=== PATIENT | female | born 1975 | race Caucasian/White ===

== ENCOUNTER 2021-08-22 06:13 | Day surgery (SDC) | payer OTHER ==
[~2021-08-22] VITALS: Ht 172.7 cm; Wt 74.0 kg
[~2021-08-22 06:13] MED LIST: ACETAMINOPHEN 500 MG TABLET PO PRN; CALC625T12 PO; CHOL5000 PO; HYDROmorphone 2 MG/ML INJ. IVP PRN; IV RINGERS,LACTATED 1000ML 1,000 ML IV SCH; MORPHINE SULFATE 2 MG/ML INJ. IVP PRN; MULT-245 PO; OMEP20CA16 PO; PROCHLORPERAZINE 10 MG/2 ML VIAL. IVP PRN; TIZA-75 PO; TRAM50TA PO; ceFAZolin SODIUM IV Push 1 GM VIAL. IVP PRN; fentaNYL PF VIAL 100 MCG/2 ML VIAL IVP PRN
[2021-08-22 06:38] VITALS: BP 135/76
[2021-08-22] MEDS ORDERED: PROPOFOL 10 MG/ML (20ML) VIAL. IV ONE (06:48)
[2021-08-22] MEDS ORDERED: ONDANSETRON PF 4 MG/2 ML VIAL. ONE (06:48)
[2021-08-22] MEDS ORDERED: LIDOCAINE 2% PF 5 ML VIAL. ONE (06:48)
[2021-08-22] MEDS ORDERED: DEXAMETHASONE SOD PHOS 4 MG/ML VIAL ONE (06:48)
[2021-08-22] MEDS ORDERED: BUPIVACAINE-EPI 0.25%-1:200000 MPF 30 ML VIAL. ONE (07:09)
[2021-08-22] MEDS ORDERED: SCOPOLAMINE 1.5MG PATCH. TD ONE (07:15)
[2021-08-22] MEDS ORDERED: MIDAZOLAM HCL/PF 2 MG/2 ML VIAL. ONE (07:26)
[2021-08-22] MEDS ORDERED: fentaNYL PF VIAL 100 MCG/2 ML VIAL ONE ×2 (07:26→08:23)
[2021-08-22] MEDS ORDERED: KETOROLAC 30 MG/ML VIAL. ONE (07:42)
[2021-08-22] MEDS ORDERED: SEVOFLURANE 31 TO 60 MINUTES. IH ONE (07:43)
--- NOTE | 2021-08-22 07:59 | PDOC4 ---
Operative Note Operative Note Date: August 222021 at 7:57 AM Preoperative diagnosis: Right supraclavicular mass Postoperative diagnosis: Same Procedure: Excision of right supraclavicular mass Surgeon: Finn Specimen: Right supraclavicular mass Pie Chef: None Dictation: Patient is a 46-year-old female has noted a mass at the base of her neck on the right side she is also has some lymph nodes palpable on the left side CT scan showed multiple lymphadenopathies of the neck and cervical chain. Procedure of excisional biopsy was explained to the patient detail risk-benefit were also discussed including bleeding infection alternatives this procedure also discussed with the patient who seemed to understand and gave a verbal written consent to have procedure performed. Patient was taken to the operating room placed in supine position general anesthesia was initiated once patient was sleeping intubated her neck was prepped and draped in usual sterile fashion using ChloraPrep. An area over the mass on the right supraclavicular area was injected with quarter percent Marcaine with epinephrine incision was made 15 blade scalpel is carried down through subcutaneous tissues using electrocautery right hemostasis down to the mass which appeared to be a large lymph node this was excised with electrocautery and sent for pathology as fresh specimen. The wound was then closed in the deep layer 3-0 Vicryl and the skin was reapproximated for subcuticular Monocryl Mastisol Steri-Strips and island dressings were applied. Patient was awakened and extubated in the operating room taken recovery in stable condition all sponge instrument needle counts listed as correct estimated blood loss 5 mL KODAK DUVAL MD Aug 22, 2021 07:59
[2021-08-22] MEDS ORDERED: TRAM50TA PO (08:01)
--- NOTE | 2021-08-22 08:03 | DISCH ---
DISCHARGE INSTRUCTIONS Condition on Discharge Condition on Discharge: Stable Activity After Discharge Activity Instructions for Disc: Activity as tolerated Diet after Discharge Diet after Discharge: Regular Wound Incision Care Other wound/incision instructi: May shower in 24-hour Contacting the DRBrigette after DC Call your doctor for: If your condition worsens Follow-Up Follow up with: Dr. Duval in 2-week KODAK DUVAL MD Aug 22, 2021 08:02
[2021-08-22] MEDS: fentaNYL PF VIAL 100 MCG/2 ML VIAL IVP PRN ×2 (08:28→08:49)
[2021-08-22] MEDS ORDERED: traMADol 50 MG TABLET PO ONE (08:45)
[2021-08-22] MEDS ORDERED: MORPHINE SULFATE 2 MG/ML INJ. ONE (08:50)
[2021-08-22 08:56] VITALS: BP 159/95
--- NOTE | 2021-08-29 17:07 | PATHOLOGY ---
[facility] Accession Number: [id number] . 01 Material submitted: . lymph node - RIGHT SUPRACLAVICULAR LYMPH NODE SENT FRESH TOUCH PREP. Modifiers: right, SUPRACLAVICULAR . 01 Clinical history: . ENLARGED LYMPH NODE R SUPRACLAVICULAR LYMPH NODE EXCISION LYMPHADENOPATHY . 02 Frozen section diagnosis: . TOUCH PREPARATION GROSS DESCRIPTION: The specimen is received in two parts. The first consists of an enlarged merchant lymph node which measures up to 3.5 x 3.0 x 2.0 cm in greatest dimension. Sectioning reveals a merchant fleshy appearing cut surface. Two touch preparations are prepared and submitted for H and E staining. A agency sales representative portion of the node is submitted in RPMI for lymphocyte marker studies by flow cytometry. Field Crop Farm Worker sections from this node are submitted as A1-A5. . Also received is a lobulated segment of reddish-purple and merchant soft tissue measuring up to 3.0 x 2.5 x 1.0 cm in greatest dimension. Sectioning reveals what appears to be several merchant lymph nodes ranging from 0.8 cm up to 1.5 cm. Field Crop Farm Worker sections from these lymph nodes are submitted for microscopy as A6 and A7. . (JPM:pit:db; 08/22/2021) . Touch preparation performed at [facility], [address] [facility] [place] [address] JMP/QTP . 02 Diagnosis: Lymph nodes, right supraclavicular lymph node excisional biopsy: - CLASSIC HODGKIN LYMPHOMA, NODULAR SCLEROSIS SUBTYPE, WITH FOCAL AREAS OF SYNCYTIAL VARIANT. SEE COMMENT. . LBQ 08/29/2021 1608 Local . 02 Comment: Sections of the right supraclavicular lymph node excisional biopsy reveal an atypical lymphoid proliferation extensively involving several lymph nodes. The lymph nodes show multiple and frequently solid clusters of atypical large lymphoid cells, some of which show central necrosis. The atypical large lymphoid cells have pale eosinophilic cytoplasm, and possess enlarged rounded, ovoid, and irregular nuclei containing prominent nucleoli. There are mitotic figures present. The clusters contain variable, and focally prominent numbers of admixed eosinophils. There is also an occasional admixed multinucleated giant cell. There are focal larger irregular areas of confluent clusters of atypical cells which have a fibrohistiocytic appearance. The larger lymph node is focally partially divided into smaller nodules revealing a similar atypical lymphoid proliferation. Between the clusters there are uninvolved areas of lymph node focally containing lymphoid follicles with germinal centers and patent dashawn sinuses. . A portion of the specimen submitted for flow cytometric analysis has a viability of 81.7%. B-cells are polyclonal, and T-cells have no loss of T-cell antigens. There is no flow immunophenotypic evidence of a B-cell or T-cell lymphoproliferative disorder. (See flow cytometric report [id number]). . To confirm flow cytometric findings and characterize the target cells in a tissue architectural context, a properly controlled panel of immunoperoxidase stains is obtained on A6 and yields and the following results: . CD20: Atypical large cells negative CD3: Atypical large cells negative CD45: Atypical large cells largely negative CD15: Atypical large cells focally positive CD30: Atypical large cells positive PAX5: Atypical large cells focally weakly positive ALK-1: Atypical large cells negative MUM-1: Atypical large cells positive . The morphologic and immunophenotypic findings are supportive of the diagnosis of nodular sclerosis classic Hodgkin lymphoma with focal areas of syncytial variant. The case is also examined by Dr. Alison Luis, who concurs with the diagnosis. The results are reported to Dr. Briesno on 08/28/21 at 3:47 PM. (JPM/db; 08/28/2021) . Special stains performed: Immunoperoxidase stains for CD3, CD20, CD45, CD15, CD30, PAX-5, MUM-1 and ALK-1 all on A6 . 02 Electronically signed: . Ricardo Velasco MD, Pathologist NPI- [id number] . 01 Gross description: . SEE TOUCH PREPARATION GROSS DESCRIPTION. [facility]/P 08/28/2021 1052 Local . 02 Pathologist provided ICD-10: I89.8, R59.0 . 02 CPT . 229217, X03201, [id number] Specimen Comment: A courtesy copy of this report has been sent to [phone], [phone] Specimen Comment: [id number] Specimen Comment: Report sent to / DR LUNDBERG Performed at: [address] [facility], [place] [id number] MD Rudy Hamilton MD Phone: [phone] Performed at: [facility] [address] [place], [place] [id number] MD Ricardo Velasco MD Phone: [phone]
== END 2021-08-22 09:30 | disposition home or self-care (01) ==
LOC: SURG 06:13
PROVIDERS: ATTEND Surgery
DX: R22.1 Localized swelling, mass and lump, neck (principal); I89.8 Other specified noninfective disorders of lymphatic vessels and lymph nodes; R59.0 Localized enlarged lymph nodes; K21.9 Gastro-esophageal reflux disease without esophagitis; F41.9 Anxiety disorder, unspecified; F32.9 Major depressive disorder, single episode, unspecified; Z87.891 Personal history of nicotine dependence; Z79.899 Other long term (current) drug therapy; Z98.890 Other specified postprocedural states; Z72.89 Other problems related to lifestyle
CPT/HCPCS: 38500; 81025; 88184; 88185; A4364; A4930; J0690; J1100; J1885; J2250; J2270; J2405; J2704; J3010; J3490; 88307; 88341; 88342; A4452